=== PATIENT | female | born 1985 | race African-American/Black ===

== ENCOUNTER 2025-01-24 10:40 | Emergency (ER) | payer MEDICAID ==
[~2025-01-24] VITALS: Ht 162.6 cm; Wt 93.0 kg
[2025-01-24 10:43] VITALS: BP 194/104; PULSE 82; RESP 18; TEMP 36.8; O2SAT 98
== END 2025-01-24 13:00 | disposition left against medical advice (07) ==
LOC: ER 10:40
DX: R07.89 Other chest pain (principal); M54.2 Cervicalgia; Z53.21 Procedure and treatment not carried out due to patient leaving prior to being seen by health care provider; V49.9XXA Car occupant (driver) (passenger) injured in unspecified traffic accident, initial encounter; Y93.89 Activity, other specified; Y92.89 Other specified places as the place of occurrence of the external cause; Y99.8 Other external cause status
CPT/HCPCS: 71045; 93005